=== PATIENT | male | born 1980 | race Caucasian/White ===

== ENCOUNTER 2016-09-14 19:00 | Emergency (ER) | payer OTHER ==
[2016-09-14 19:12] VITALS: BP 134/83
[2016-09-14] MEDS ORDERED: Lidocaine 2% VISCOUS* 15 ML UDC PO ONE (20:20)
[2016-09-14] MEDS ORDERED: Al Hydrox/Mg Hydrox/Simet LIQ* 30 ML UDC PO ONE (20:20)
--- NOTE | 2016-09-14 20:52 | RAD ---
INDICATION: Cough and congestion. COMPARISON: Comparison is made with a prior chest x-ray study from February 06, 2010. TECHNIQUE: Dual-energy PA and lateral views of the chest were obtained. FINDINGS: The heart is within normal limits in size. Mediastinal and hilar contours appear within normal limits. The lungs are clear. No pleural effusion is present. IMPRESSION: NO EVIDENCE FOR ACTIVE CARDIOPULMONARY DISEASE.
--- NOTE | 2016-11-23 10:52 | ED ---
Influenza-Like Illness - HPI Summary HPI Summary: Patient presents with severe coughing with burning in the chest and some gagging when he coughs. He thinks he has a really bad chest cold that began last week. He has been treating it with over the counter medication with mild relief. He denies difficulty breathing or swallowing, although swallowing is painful. No fever, chills,ONEILL, neck pain or ear pain. - History of Current Complaint Chief Complaint: EDChestWallPain Time Seen by Provider: 09/14/16 20:03 Hx Obtained From: Patient Onset/Duration: Gradual Onset Severity: Moderate Associated Signs & Symptoms: Cough, Sore Throat, Nasal Congestion Related Hx: Possible Flu/Infectious Exposure - Allergy/Home Medications Allergies/Adverse Reactions: Allergies Allergy/AdvReac Type Severity Reaction Status Date / Time Penicillins Allergy Anaphylatic Verified 12/04/15 15:14 Shock PMH/Surg Hx/FS Hx/Imm Hx Respiratory History: Reports: Hx Asthma Infectious Disease History: No Infectious Disease History: Denies: Traveled Outside the [place] in Last 30 Days - Family History Known Family History: Positive: None - Social History Occupation: Employed Full-time Alcohol Use: Occasionally Substance Use Type: Reports: Marijuana Substance Use Comment - Amount & Last Used: 12/02/15 Smoking Status (MU): Current Every Day Smoker Cessation Counseling: Patient Advised to Stop Review of Systems Negative: Fever, Chills Positive: Sore Throat, Nasal Discharge. Negative: Ear Ache Negative: Chest Pain Positive: Cough. Negative: Shortness Of Breath Negative: Vomiting, Diarrhea, Nausea All Other Systems Reviewed And Are Negative: Yes Physical Exam Triage Information Reviewed: Yes Vital Signs On Initial Exam: Initial Vitals Temp Pulse Resp BP Pulse Ox 100.0 F 101 20 134/83 100 09/14/16 19:10 09/14/16 19:10 09/14/16 19:10 09/14/16 19:10 09/14/16 19:10 Vital Signs Reviewed: Yes Appearance: Positive: Well-Appearing, No Pain Distress, Well-Nourished Skin: Positive: Warm, Skin Color Reflects Adequate Perfusion, Dry, Soft Head/Face: Positive: Normal Head/Face Inspection Eyes: Positive: EOMI, ANALI, Conjunctiva Clear ENT: Positive: Hearing grossly normal, Pharyngeal erythema, TMs normal. Negative: Tonsillar swelling, Tonsillar exudate, Trismus, Muffled/hoarse voice, Dental tenderness Neck: Positive: Supple, Nontender, No Lymphadenopathy Respiratory/Lung Sounds: Positive: Clear to Auscultation, Breath Sounds Present Cardiovascular: Positive: RRR Abdomen Description: Positive: Nontender, Soft Musculoskeletal: Negative: Edema Left, Edema Right Neurological: Positive: Sensory/Motor Intact, Alert, Oriented to Person Place, Time, Normal Gait Psychiatric: Positive: Affect/Mood Appropriate AVPU Assessment: Alert Diagnostics - Vital Signs Vital Signs Temp Pulse Resp BP Pulse Ox 09/14/16 20:12 19 09/14/16 19:12 100.0 F 98 22 134/83 100 09/14/16 19:10 100.0 F 101 20 134/83 100 - Laboratory Lab Results: Lab Results 09/14/16 Range/Units 20:56 Influenza A (Rapid) Negative (Negative) Influenza B (Rapid) Negative (Negative) Lab Statement: Any lab studies that have been ordered have been reviewed, and results considered in the medical decision making process. - Radiology No standard instances Xray Interpretation: No Acute Changes Radiology Interpretation Completed By: Radiologist Flu Symptom Course/Dx - Diagnoses Differential Diagnosis/HQI/PQRI: Positive: Bronchitis, Influenza, Pneumonia, Upper Respiratory Infection Provider Diagnoses: Pharyngitis Discharge - Discharge Plan Condition: Stable Disposition: HOME Prescriptions: Benzonatate CAP* [Tessalon 100 MG CAP*] 100 mg PO TID PRN #15 cap PRN Reason: Cough Magic Mouth Was-NICHOLE/MAAL/LIDO* 5 ml SWISH SWAL QID #100 ml Patient Education Materials: Pharyngitis (ED) Referrals: No Primary Care Phys,NOPCP [Primary Care Provider] - Additional Instructions: Please use the medication provided in combination with cough drops to decrease your cough and throat irritation. Follow-up with your primary care provider if symptoms do not begin to improve in 3-5 days. Return to the emergency department if symptoms worsen.
== END 2016-09-14 21:35 | disposition home or self-care (01) ==
LOC: ED 19:00
DX: J02.9 Acute pharyngitis, unspecified (principal); F17.200 Nicotine dependence, unspecified, uncomplicated; Z88.0 Allergy status to penicillin
CPT/HCPCS: 71020; 87502; 99282; A9270-GY

== ENCOUNTER 2017-12-17 14:09 | Emergency (ER) | payer SELFPAY ==
--- NOTE | 2017-12-17 14:40 | ED ---
Lower Extremity - HPI Summary HPI Summary: Pt. is a 37 y.o male who presents to the ER for right knee pain. Pt. states for over the last month he has been having right knee pain. He feels his knee has been "popping" in and out of placed. Pt. states last night it popped but pt. feels it did not go back into place. 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 Pain is improved with motrin. Pain is exacerbated with walking and extending leg. Symptoms are mild in severity. - History of Current Complaint Chief Complaint: EDExtremityLower Stated Complaint: RT KNEE PAIN Time Seen by Provider: 12/17/17 14:23 Hx Obtained From: Patient Pain Intensity: 8 - Allergies/Home Medications Allergies/Adverse Reactions: Allergies Allergy/AdvReac Type Severity Reaction Status Date / Time Penicillins Allergy Anaphylatic Verified 12/17/17 14:25 Shock PMH/Surg Hx/FS Hx/Imm Hx Previously Healthy: Yes Respiratory History: Reports: Hx Asthma Sensory History: Denies: Hx Legally Blind, Hx Deafness Opthamlomology History: Denies: Hx Legally Blind Psychiatric History: Reports: Hx Depression Infectious Disease History: No Infectious Disease History: Denies: Traveled Outside the [place] in Last 30 Days - Family History Known Family History: Positive: None, Hypertension - Social History Occupation: Employed Full-time Lives: With Family Alcohol Use: Occasionally Hx Substance Use: Yes Substance Use Type: Reports: Marijuana Substance Use Comment - Amount & Last Used: 12/02/15 Hx Tobacco Use: Yes Smoking Status (MU): Current Every Day Smoker Review of Systems Constitutional: Negative Negative: Fever, Chills Gastrointestinal: Negative Negative: Vomiting, Nausea Positive: Other - Right knee pain Negative: Weakness, Paresthesia, Numbness All Other Systems Reviewed And Are Negative: Yes Physical Exam Triage Information Reviewed: Yes Vital Signs On Initial Exam: Initial Vitals Temp Pulse Resp BP Pulse Ox 97.9 F 73 15 121/89 96 12/17/17 14:20 12/17/17 14:20 12/17/17 14:20 12/17/17 14:20 12/17/17 14:20 Vital Signs Reviewed: Yes Appearance: Positive: Well-Appearing - Pt. sitting in chair in NAD. Skin: Positive: Warm, Dry Head/Face: Positive: Normal Head/Face Inspection Eyes: Positive: Normal Neck: Positive: Supple Musculoskeletal: Positive: Other - Pain on palpation over the medial aspect of right knee. Pain with extension. No increased warmth or redness over knee. Leg is neurovascularly intact. No calf edema. Neurological: Positive: Normal, CN Intact II-III Psychiatric: Positive: Affect/Mood Appropriate Diagnostics - Vital Signs Vital Signs Temp Pulse Resp BP Pulse Ox 12/17/17 14:20 97.9 F 73 15 121/89 96 - Laboratory Lab Statement: Any lab studies that have been ordered have been reviewed, and results considered in the medical decision making process. Lower Extremity Course/Dx - Course Course Of Treatment: Pt. presenting for ongoing right knee pain and difficulty ambulating. Xray shows a small joint effusion, otherwise negative, reading per radiology. Results discussed. Naproxen rx for pain. Advised ice and elevation and rest. Was given INFO for ortho. clinic if sxs persist. Pt. understands and agrees with plan. - Diagnoses Differential Diagnosis/HQI/PQRI: Positive: Dislocation, Fracture (Closed), Sprain, Strain, Tendonitis Provider Diagnoses: Knee effusion, Knee pain Discharge - Sign-Out/Discharge Documenting (check all that apply): Patient Departure - Discharge Plan Condition: Good Disposition: HOME Prescriptions: Naproxen [Naproxen 500 mg tab] 500 mg PO Q12H #20 tablet Patient Education Materials: Knee Pain (ED) Forms: *Work Release Referrals: Alek Dennis MD [Medical Doctor] - No Primary Care Phys,NOPCP [Primary Care Provider] - Additional Instructions: Schedule a follow up appointment with orthopedics Ice and elevate Naproxen as directed for pain Activity as tolerated Return to ER if symptoms change or worsen - Billing Disposition and Condition Condition: GOOD Disposition: Home
--- NOTE | 2017-12-17 15:08 | RAD ---
HISTORY: Right knee injury COMPARISONS: None VIEWS: 4, Frontal, lateral, axial, and oblique views of the right knee FINDINGS: BONE DENSITY: Normal. BONES: There is no displaced fracture. JOINTS: There is no arthropathy. There is a small suprapatellar joint effusion. There is no lipohemarthrosis. ALIGNMENT: There is no dislocation. SOFT TISSUES: Unremarkable. OTHER FINDINGS: None. IMPRESSION: NO ACUTE OSSEOUS INJURY. SMALL JOINT EFFUSION. IF SYMPTOMS PERSIST, RECOMMEND REPEAT IMAGING.
[2017-12-17 15:32] VITALS: BP 120/82
== END 2017-12-17 15:30 | disposition home or self-care (01) ==
LOC: ED 14:09
DX: M25.561 Pain in right knee (principal); M25.461 Effusion, right knee; J45.909 Unspecified asthma, uncomplicated; F32.9 Major depressive disorder, single episode, unspecified; Z88.0 Allergy status to penicillin; F17.200 Nicotine dependence, unspecified, uncomplicated
CPT/HCPCS: 99282

== ENCOUNTER 2018-05-15 11:24 | Emergency (ER) | payer SELFPAY ==
[2018-05-15] MEDS ORDERED: Ibuprofen TAB* 400 MG PO ONE (12:13)
[2018-05-15 12:23] LABS: Hematocrit 45 % (42-52); Hemoglobin 15.4 g/dl (14.0-18.0); Mean Corpuscular HGB Conc 34 g/dl (31-36); Mean Corpuscular Hemoglobin 32 pg (27-31); Mean Corpuscular Volume 92 fL (80-94); Mean Platelet Volume 8.4 fL (7.4-10.4); Platelet Count 221 10^3/ul (150-450); Red Blood Count 4.88 10^6/ul (4.00-5.40); Red Cell Distribution Width 13 % (10.5-15); White Blood Count 18.9 10^3/ul (3.5-10.8)
[2018-05-15 12:40] LABS: EGFR Non-African American 80.4 (>60)
[2018-05-15 12:47] LABS: ABS Basophils 0 10^3/ul (0-0.2); ABS Eosinophils 0.1 10^3/ul (0-0.6); ABS Lymphocytes 1.7 10^3/ul (1.0-4.8); ABS Monocytes 1.8 10^3/ul (0-0.8); ABS Neutrophils 15.1 10^3/ul (1.5-7.7); ABS Nucleated RBC 0 10^3/ul; Eosinophil % 0.7 %; Lymphocyte % 9.2 %; Nucleated Red Blood Cells % 0
[2018-05-15] MEDS ORDERED: NS 0.9% 1000 ML* 1,000 ML IV ONE (13:06)
[2018-05-15] MEDS ORDERED: Clindamycin 600 MG IVPREMIX(* 600 MG/50 ML SDV IV ONE (13:06)
[2018-05-15] MEDS ORDERED: Dexamethasone IV* 4 MG/ML 1 ML (4 MG) IV SLOW PU ONE (13:48)
[2018-05-15 15:20] VITALS: BP 116/69
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
== END 2018-05-15 15:19 | disposition home or self-care (01) ==
LOC: ED 11:24
DX: J36 Peritonsillar abscess (principal); S02.92XA Unspecified fracture of facial bones, initial encounter for closed fracture; X58.XXXA Exposure to other specified factors, initial encounter; Y92.9 Unspecified place or not applicable; Z72.0 Tobacco use; Z88.0 Allergy status to penicillin; F32.9 Major depressive disorder, single episode, unspecified; S02.40FA Zygomatic fracture, left side, initial encounter for closed fracture; Y04.2XXA Assault by strike against or bumped into by another person, initial encounter
CPT/HCPCS: 36415; 70486; 71046; 80053; 85025; 86140; 96361; 96374; 96375; 99282; A9270-GY; J1100